=== PATIENT | female | born 1995 | race Caucasian/White ===

== ENCOUNTER 2016-05-04 12:50 | Emergency (ER) | payer SELFPAY ==
[~2016-05-04] VITALS: Ht 160 cm; Wt 104.5 kg
[2016-05-04 14:38] LABS: PH 5 (5-8); SQUAMOUS EPITHELIAL 0-2 /hpf; URINE APPEARANCE Hazy; URINE BACTERIA None Seen /hpf; URINE BILIRUBIN Negative (NEGATIVE); URINE BLOOD Negative (NEGATIVE); URINE COLOR Yellow; URINE GLUCOSE Negative (NEGATIVE); URINE KETONE Negative (NEGATIVE); URINE RBC 0-2 /hpf; URINE UROBILINOGEN Negative (NEGATIVE); URINE WBC 0-2 /hpf
[2016-05-04 15:01] VITALS: BP 135/76; PULSE 96; TEMP 98.6
[2016-05-04 15:22] LABS: CHLAMYDIA/TRACH by PCR Female Not Detected; NEISSERIA GON by PCR Female Not Detected
== END 2016-05-04 15:02 | disposition home or self-care (01) ==
LOC: COL.ER 12:50
PROVIDERS: Physician Assistant
DX: L98.9 Disorder of the skin and subcutaneous tissue, unspecified (principal)

== ENCOUNTER 2017-01-29 10:44 | Emergency (ER) | payer SELFPAY ==
[~2017-01-29] VITALS: Ht 160 cm; Wt 85.0 kg
[2017-01-29 10:55] VITALS: BP 131/75; TEMP 97.6
[2017-01-29] MEDS ORDERED: GENTAMICIN EYE D5 ML OU (12:15)
[2017-01-29 12:36] VITALS: PULSE 78
[2017-01-29] MEDS ORDERED: NORCO 325 MG-51 TAB PO (15:30)
== END 2017-01-29 12:36 | disposition home or self-care (01) ==
LOC: COL.ER 10:44
DX: S05.01XA Injury of conjunctiva and corneal abrasion without foreign body, right eye, initial encounter (principal); S05.02XA Injury of conjunctiva and corneal abrasion without foreign body, left eye, initial encounter; H10.9 Unspecified conjunctivitis; Z23 Encounter for immunization; Z77.098 Contact with and (suspected) exposure to other hazardous, chiefly nonmedicinal, chemicals; X58.XXXA Exposure to other specified factors, initial encounter

== ENCOUNTER 2017-03-11 15:18 | Emergency (ER) | payer SELFPAY ==
[~2017-03-11] VITALS: Ht 160 cm; Wt 95.5 kg
[~2017-03-11 15:18] MED LIST: FLEXERIL 1010 MG/TAB PO; GENTAMICIN EYE D5 ML OU; NORCO 325 MG-51 TAB PO
[2017-03-11 15:21] VITALS: BP 129/87; TEMP 97.8
[2017-03-11 16:01] LABS: COLLECTION METHOD CLEAN CATCH
[2017-03-11 16:14] LABS: MUCOUS Present /lpf; PH 5 (5-8); SQUAMOUS EPITHELIAL 20-50 /hpf; URINE APPEARANCE Cloudy; URINE BACTERIA None Seen /hpf; URINE BILIRUBIN Negative (NEGATIVE); URINE BLOOD Negative (NEGATIVE); URINE COLOR Yellow; URINE GLUCOSE Negative (NEGATIVE); URINE KETONE Negative (NEGATIVE); URINE LEUKOCYTE ESTERASE 2+ (NEGATIVE); URINE PROTEIN(semi-quant) 1+ (NEGATIVE); URINE UROBILINOGEN Negative (NEGATIVE)
[2017-03-11 16:29] LABS: BASO # 0.1 (0.0-0.2); BASO % 0.5 % (0.0-2.0); EOS # 0.2 (0.0-0.7); EOS % 1.9 % (0-4.0); GRAN # 6.7 (1.4-6.5); GRAN % 61.2 % (42.2-75.2); HEMATOCRIT 41.3 % (37.0-47.0); HEMOGLOBIN 13.5 g/dl (12.5-16.0); LYMPH # 3.3 (1.2-3.4); LYMPH % 30.1 % (20.0-51.0); MEAN CELL VOLUME 89 fl (80.0-100.0); MEAN CORPUSCULAR HEMOGLOBIN 29 pg (27.0-31.0); MEAN CORPUSCULAR HGB CONC 33 g/dl (33.0-37.0); MEAN PLATELET VOLUME 8.2 fl (7.4-10.4); MONO # 0.7 (0.1-0.6); MONO % 6.1 % (1.7-9.3); PLATELET COUNT 362 K/mm3 (130-400); RED BLOOD COUNT 4.64 M/mm3 (4.10-5.30)
[2017-03-11] MEDS ORDERED: CIPRO 500MG TA500 MG PO (16:39)
[2017-03-11 16:43] LABS: ADJUSTED CALCIUM 9.4 mg/dL (8.4-10.2); ALBUMIN 4.8 gm/dL (3.5-5.0); BILIRUBIN,TOTAL 0.6 mg/dL (0.0-1.0); CREATININE, serum 0.66 mg/dL (0.52-1.25); POTASSIUM 4.2 mmol/L (3.4-5.0); TOTAL PROTEIN 8.1 gm/dL (6.4-8.2)
[2017-03-11 17:10] VITALS: PULSE 88
== END 2017-03-11 17:16 | disposition home or self-care (01) ==
LOC: COL.ER 15:18
PROVIDERS: Physician Assistant
DX: N39.0 Urinary tract infection, site not specified (principal); J45.909 Unspecified asthma, uncomplicated; F17.210 Nicotine dependence, cigarettes, uncomplicated
CPT/HCPCS: J1885

== ENCOUNTER 2017-06-08 15:13 | Emergency (ER) | payer SELFPAY ==
[~2017-06-08] VITALS: Ht 160 cm; Wt 95.5 kg
[~2017-06-08 15:13] MED LIST changes: +CIPRO 500MG TA500 MG PO
[2017-06-08 15:21] VITALS: TEMP 97.7
[2017-06-08 16:20] VITALS: BP 134/70; PULSE 69
== END 2017-06-08 16:20 | disposition home or self-care (01) ==
LOC: COL.ER 15:13
DX: G43.909 Migraine, unspecified, not intractable, without status migrainosus (principal); F17.210 Nicotine dependence, cigarettes, uncomplicated

== ENCOUNTER 2017-07-13 12:32 | Emergency (ER) | payer SELFPAY ==
[~2017-07-13] VITALS: Ht 160 cm; Wt 105.5 kg
[2017-07-13 12:46] VITALS: BP 131/98; PULSE 100; TEMP 97.5
== END 2017-07-13 13:18 | disposition home or self-care (01) ==
LOC: COL.ER 12:32
DX: M79.644 Pain in right finger(s) (principal); W31.89XA Contact with other specified machinery, initial encounter

== ENCOUNTER 2017-08-05 15:51 | Emergency (ER) | payer SELFPAY ==
[~2017-08-05] VITALS: Ht 160 cm; Wt 106.4 kg
[2017-08-05 15:54] VITALS: BP 140/75; PULSE 113; TEMP 98.2
[2017-08-05] MEDS ORDERED: ZOFRAN ODT4 MG PO (16:53)
== END 2017-08-05 17:06 | disposition home or self-care (01) ==
LOC: COL.ER 15:51
DX: R51 Headache (principal); F17.210 Nicotine dependence, cigarettes, uncomplicated; Z88.0 Allergy status to penicillin; Z88.1 Allergy status to other antibiotic agents; Z88.2 Allergy status to sulfonamides
CPT/HCPCS: J1200; J1885; J2550

== ENCOUNTER 2017-08-11 13:59 | Emergency (ER) | payer SELFPAY ==
[~2017-08-11] VITALS: Ht 160 cm; Wt 98.6 kg
[~2017-08-11 13:59] MED LIST changes: +ZOFRAN ODT4 MG PO
[2017-08-11 14:06] VITALS: BP 129/68; TEMP 97.2
[2017-08-11 16:45] VITALS: PULSE 64
== END 2017-08-11 16:46 | disposition home or self-care (01) ==
LOC: COL.ER 13:59
DX: G43.909 Migraine, unspecified, not intractable, without status migrainosus (principal); F17.210 Nicotine dependence, cigarettes, uncomplicated; F12.90 Cannabis use, unspecified, uncomplicated; Z98.890 Other specified postprocedural states
CPT/HCPCS: J1100; J1200; J1885; J2765

== ENCOUNTER 2017-09-11 14:58 | Emergency (ER) | payer SELFPAY ==
[~2017-09-11] VITALS: Ht 160 cm; Wt 100.0 kg
[2017-09-11 15:00] VITALS: BP 131/83; PULSE 94; TEMP 98.1
[2017-09-11] MEDS ORDERED: FLEXERIL 1010 MG/TAB PO (15:48)
== END 2017-09-11 16:27 | disposition home or self-care (01) ==
LOC: COL.ER 14:58
DX: S93.401A Sprain of unspecified ligament of right ankle, initial encounter (principal); S33.9XXA Sprain of unspecified parts of lumbar spine and pelvis, initial encounter; W19.XXXA Unspecified fall, initial encounter; Y92.89 Other specified places as the place of occurrence of the external cause

== ENCOUNTER 2017-10-03 20:19 | Emergency (ER) | payer SELFPAY ==
[~2017-10-03] VITALS: Ht 160 cm; Wt 95.5 kg
[2017-10-03 20:33] VITALS: TEMP 98.9
[2017-10-03] MEDS ORDERED: DOXYCYCLINE 10100 MG PO (22:26)
[2017-10-03] MEDS ORDERED: NORCO 325 MG-51 TAB PO (22:26)
[2017-10-03] MEDS ORDERED: FLAGYL500 MG PO (22:26)
[2017-10-03 22:38] VITALS: BP 119/87; PULSE 107
== END 2017-10-03 22:35 | disposition home or self-care (01) ==
LOC: COL.ER 20:19
DX: N76.0 Acute vaginitis (principal); N76.4 Abscess of vulva; T36.4X5A Adverse effect of tetracyclines, initial encounter; T37.3X5A Adverse effect of other antiprotozoal drugs, initial encounter
CPT/HCPCS: J1885

== ENCOUNTER 2017-10-26 14:03 | Emergency (ER) | payer SELFPAY ==
[~2017-10-26] VITALS: Ht 157.5 cm; Wt 95.5 kg
[~2017-10-26 14:03] MED LIST changes: +DOXYCYCLINE 10100 MG PO; +FLAGYL500 MG PO
[2017-10-26 14:06] VITALS: TEMP 99
[2017-10-26] MEDS ORDERED: TYLENOL 500MG500 MG PO (14:23)
[2017-10-26 14:36] LABS: COLLECTION METHOD CLEAN CATCH
[2017-10-26 14:46] LABS: MUCOUS Present /lpf; PH 6 (5-8); URINE APPEARANCE Clear; URINE BACTERIA Rare /hpf; URINE BILIRUBIN Negative (NEGATIVE); URINE BLOOD Negative (NEGATIVE); URINE COLOR Yellow; URINE GLUCOSE Negative (NEGATIVE); URINE KETONE Negative (NEGATIVE); URINE LEUKOCYTE ESTERASE Trace (NEGATIVE); URINE NITRATE Negative (NEGATIVE); URINE PROTEIN(semi-quant) Negative (NEGATIVE); URINE UROBILINOGEN Negative (NEGATIVE)
[2017-10-26 15:07] LABS: BASO # 0.1 (0.0-0.2); BASO % 0.6 % (0.0-2.0); EOS # 0.3 (0.0-0.7); EOS % 2.9 % (0-4.0); GRAN # 4.8 (1.4-6.5); GRAN % 49.2 % (42.2-75.2); HEMATOCRIT 40.5 % (37.0-47.0); HEMOGLOBIN 13.1 g/dl (12.5-16.0); LYMPH % 41.2 % (20.0-51.0); MEAN CELL VOLUME 91 fl (80.0-100.0); MEAN CORPUSCULAR HEMOGLOBIN 29 pg (27.0-31.0); MEAN CORPUSCULAR HGB CONC 32 g/dl (33.0-37.0); MEAN PLATELET VOLUME 8.8 fl (7.4-10.4); MONO # 0.6 (0.1-0.6); MONO % 5.8 % (1.7-9.3); PLATELET COUNT 444 K/mm3 (130-400); RED BLOOD COUNT 4.46 M/mm3 (4.10-5.30); REDCELL DISTRIBUTION WIDTH-CV 13.3 % (11.5-14.5)
[2017-10-26 15:34] LABS: ALBUMIN 4.4 gm/dL (3.5-5.0); BILIRUBIN,TOTAL 0.3 mg/dL (0.0-1.0); C-REACTIVE PROTEIN 1.3 mg/dL (0.0-0.9); CALCIUM 9.8 mg/dL (8.4-10.2); CREATININE, serum 0.57 mg/dL (0.52-1.25); POTASSIUM 4.2 mmol/L (3.4-5.0)
[2017-10-26 15:56] VITALS: BP 131/83; PULSE 82
== END 2017-10-26 15:58 | disposition home or self-care (01) ==
LOC: COL.ER 14:03
PROVIDERS: Physician Assistant
DX: G43.909 Migraine, unspecified, not intractable, without status migrainosus (principal); R11.10 Vomiting, unspecified; R19.7 Diarrhea, unspecified
CPT/HCPCS: J1200; J1885; J2765; J7030

== ENCOUNTER 2017-11-03 17:51 | Emergency (ER) | payer SELFPAY ==
[~2017-11-03] VITALS: Ht 160 cm; Wt 95.5 kg
[~2017-11-03 17:51] MED LIST changes: +TYLENOL 500MG500 MG PO
[2017-11-03 17:56] VITALS: BP 139/96; TEMP 98.7
[2017-11-03 18:36] LABS: COLLECTION METHOD CLEAN CATCH
[2017-11-03 18:46] LABS: BASO # 0.1 (0.0-0.2); BASO % 0.5 % (0.0-2.0); EOS # 0.4 (0.0-0.7); EOS % 3.1 % (0-4.0); GRAN # 5.5 (1.4-6.5); GRAN % 48.5 % (42.2-75.2); HEMATOCRIT 37.5 % (37.0-47.0); HEMOGLOBIN 12.5 g/dl (12.5-16.0); LYMPH # 4.8 (1.2-3.4); MEAN CELL VOLUME 89 fl (80.0-100.0); MEAN CORPUSCULAR HEMOGLOBIN 30 pg (27.0-31.0); MEAN CORPUSCULAR HGB CONC 33 g/dl (33.0-37.0); MEAN PLATELET VOLUME 8.8 fl (7.4-10.4); MONO # 0.5 (0.1-0.6); MONO % 4.7 % (1.7-9.3); PLATELET COUNT 411 K/mm3 (130-400); RED BLOOD COUNT 4.23 M/mm3 (4.10-5.30); REDCELL DISTRIBUTION WIDTH-CV 13.3 % (11.5-14.5)
[2017-11-03 18:48] LABS: MUCOUS Present /lpf; PH 5 (5-8); URINE APPEARANCE Clear; URINE BACTERIA None Seen /hpf; URINE BILIRUBIN Negative (NEGATIVE); URINE BLOOD Negative (NEGATIVE); URINE COLOR Yellow; URINE GLUCOSE Negative (NEGATIVE); URINE KETONE Negative (NEGATIVE); URINE LEUKOCYTE ESTERASE Trace (NEGATIVE); URINE NITRATE Negative (NEGATIVE); URINE PROTEIN(semi-quant) Negative (NEGATIVE); URINE RBC 0-2 /hpf; URINE UROBILINOGEN Negative (NEGATIVE)
[2017-11-03 18:54] LABS: ALBUMIN 4.2 gm/dL (3.5-5.0); BILIRUBIN,TOTAL 0.3 mg/dL (0.0-1.0); C-REACTIVE PROTEIN 1.5 mg/dL (0.0-0.9); CALCIUM 9.3 mg/dL (8.4-10.2); CREATININE, serum 0.49 mg/dL (0.52-1.25); POTASSIUM 3.5 mmol/L (3.4-5.0); TOTAL PROTEIN 7.6 gm/dL (6.4-8.2)
[2017-11-03 20:00] VITALS: PULSE 80
== END 2017-11-03 20:00 | disposition home or self-care (01) ==
LOC: COL.ER 17:51
PROVIDERS: Emergency Medicine
DX: R10.31 Right lower quadrant pain (principal); G43.909 Migraine, unspecified, not intractable, without status migrainosus; F17.210 Nicotine dependence, cigarettes, uncomplicated
CPT/HCPCS: J2270; J2405; J7030; Q9967

== ENCOUNTER 2018-01-08 11:58 | Emergency (ER) | payer SELFPAY ==
[~2018-01-08] VITALS: Ht 157.5 cm; Wt 95.5 kg
[2018-01-08 12:05] VITALS: BP 134/80; TEMP 97.4
[2018-01-08] MEDS ORDERED: ZITHROMAX Z PA250 MG PO (13:01)
[2018-01-08] MEDS ORDERED: PROVENTIL0.09 MG/A1 IH (13:01)
[2018-01-08] MEDS ORDERED: PREDNISONE20 MG PO (13:01)
[2018-01-08 13:34] VITALS: PULSE 88
== END 2018-01-08 13:35 | disposition home or self-care (01) ==
LOC: COL.ER 11:58
DX: J20.9 Acute bronchitis, unspecified (principal); F17.210 Nicotine dependence, cigarettes, uncomplicated; G43.909 Migraine, unspecified, not intractable, without status migrainosus; Z88.0 Allergy status to penicillin; Z88.2 Allergy status to sulfonamides